=== PATIENT | male | born 1960 | race Caucasian/White ===

== ENCOUNTER 2022-10-16 07:04 | Outpatient (CLI) | payer OTHER, SELFPAY ==
--- NOTE | 2022-10-16 07:15 | MR_ITS ---
[address] [address] Phone:?[phone] Fax:?[phone] Referring Physician Information: Salinas Wilson [address] [facility] [address] Phone:?[phone] Fax:?[phone] Patient:?Rafael Jiang D.O.B:?1960 Sex:?Male Phone:?[phone] [facility] MRN:?[id number] Exam Date:?10/16/2022 EXAM: MRI OF THE LEFT ELBOW CLINICAL INFORMATION: The patient is a 62-year-old with left elbow pain. Evaluate for biceps rupture. PRIOR SURGERY: None reported. COMPARISON STUDIES: Comparison is made to prior radiographs dated 10/08/2022. TECHNICAL INFORMATION: Imaging was performed on a high-field, 1.5 Ashley MR scanner. Coronal T1, proton-density, T2, and STIR imaging of the left elbow was performed in addition to axial and sagittal proton-density and T2 imaging. FINDINGS: Elbow joint: Effusion: Mild. Ganglion cyst: None. Osteochondral surfaces: No definite chondral or osteochondral injury can be seen along the articular surfaces of the left elbow. Loose bodies: No well-defined intra-articular loose bodies are noted. Olecranon bursa: No evidence for bursitis can be seen. Osseous structures: Humerus: No fracture, osteochondritis dissecans or marrow edema/pathology. Radius: No fracture or marrow edema. Ulna: No fracture or marrow edema. Myotendinous structures: Biceps: Mild to moderate changes of distal biceps tendinosis can be seen at the radial tuberosity attachment on axial series 3 image 28. There is no evidence for full or partial-thickness tearing. No evidence for retraction is seen. No other abnormalities of the biceps tendon are present. The biceps myotendinous junction is within normal limits. Triceps: Intact posterior tendinous and anterior muscular insertions and lateral aponeurotic component, without tendinopathy, strain or tear. Brachialis: No strain/tear. Forearm extensors: Thickening and splitting of the common extensor origin can be seen at the lateral epicondyle, in keeping with chronic moderate changes of lateral epicondylitis. No evidence for disruption or retraction can be seen. No other abnormalities of the forearm extensors are noted. Forearm flexors: No tear or tendinopathy. There is no evidence for medial epicondylitis. Ligaments: Ulnar collateral: No sprain or disruption. Radial collateral: Normal. Lateral ulnar collateral: Normal. Annular: Intact. Neurovascular structures: Ulnar nerve: Normal, without appreciable edema, thickening or mass. Median neurovascular bundle: Normal. Radial neurovascular bundle: Normal. CONCLUSION: 1. Mild to moderate distal biceps tendinosis. No evidence for well-defined tearing is present. 2. Chronic moderate lateral epicondylitis. 3. No bony or osteochondral injuries are seen. 4. Mild elbow joint effusion. 5. The ligamentous structures of the elbow appear intact. 6. No neurovascular abnormalities are present. AEC Electronically signed on 10/16/2022 12:34:00 PM by Zach Vogt M.D.
--- NOTE | 2022-10-16 08:00 | MR_ITS ---
[address] [address] Phone:?[phone] Fax:?[phone] Referring Physician Information: Salinas Wilson [address] [facility] [address] Phone:?[phone] Fax:?[phone] Patient:?Rafael Jiang D.O.B:?1960 Sex:?Male Phone:?[phone] [facility] MRN:?[id number] Exam Date:?10/16/2022 EXAM: MRI OF THE LEFT SHOULDER CLINICAL INFORMATION: The patient is a 62-year-old with left shoulder pain. Evaluate rotator cuff. PRIOR SURGERY: None reported. COMPARISON STUDIES: Comparison is made to prior radiographs dated 10/08/2022. TECHNICAL INFORMATION: Using a 1.5T MR scanner and a localizing shoulder surface coil: 3.0 mm?coronal obliques: PD, T2, STIR 3.0 mm?sagittal obliques: PD, T2 3.0 mm?axials: PD, T2 FINDINGS: Articular/Extraarticular collections: Effusion: Mild to moderate. Subacromial/subdeltoid: Mild to moderate fluid is seen within the subacromial/subdeltoid bursa, in keeping with changes of bursitis. Subcoracoid: No evidence for bursitis. Osseous structures: Proximal humerus: Cortical irregularity and subcortical cystic changes can be seen involving the greater tuberosity region of the supraspinatus and infraspinatus insertion sites. The findings are in keeping with the rotator cuff pathology discussed below. No evidence for greater or lesser tuberosity fracture can be seen. There is no evidence for Hill-Sachs or reverse Hill-Sachs lesion. Glenoid: No acute bony abnormality of the glenoid fossa or glenoid neck can be seen. Acromioclavicular joint: Moderate changes of acromioclavicular joint arthrosis are present. Coracoacromial arch: Acromion morphology: Type II. No evidence for os acromiale. Acromiohumeral space: Within normal limits. Coracohumeral space: Within normal limits. Rotator cuff and deltoid: Supraspinatus: Moderate changes of supraspinatus tendinosis can be seen with deep surface fraying and irregularity. No definite full or partial-thickness tearing of the supraspinatus tendon fibers can be seen. No atrophic changes of the supraspinatus muscle belly are identified. Infraspinatus: Moderate infraspinatus tendinosis can be seen with deep surface fraying and irregularity. No full or partial-thickness tearing is identified. No atrophic changes of the infraspinatus muscle belly are present. Teres minor: No evidence for tendinosis, tearing, or associated muscle belly atrophy. Subscapularis: Moderate subscapularis tendinosis can be seen. There is partial- thickness deep surface tearing involving up to 50% of the tendon thickness and seen to best advantage on axial series 3 image 17 and on sagittal series 8 image 9. The tearing measures approximately 12 mm in greatest dimension. No full- thickness tearing or retraction is present. No atrophic changes of the subscapularis muscle belly are noted. Deltoid: No evidence for strain or tearing. Biceps tendon: Mild tendinosis of the long head of the biceps can be seen. There is no evidence for biceps rupture. No dislocation or subluxation is identified. Glenohumeral joint and labrum: Articular Cartilage: No chondral injuries along the articular surfaces of the glenohumeral articulation can be seen. No osteoarthritic changes are identified. Labrum: Degeneration, blunting, and irregularity of the glenoid labrum can be seen without definite areas of well-defined tearing. No paralabral ganglion cyst formation is present. Capsular Soft Tissues: There is thickening of the capsular structures of the glenohumeral articulation seen in the region of the axillary recess and rotator cuff interval. The findings are consistent with changes of adhesive capsulitis. CONCLUSION: 1. Moderate supraspinatus, infraspinatus, and subscapularis tendinosis. There is deep surface fraying and irregularity of the supraspinatus and infraspinatus tendons with partial-thickness deep surface tearing of the subscapularis. No full-thickness tearing or retraction of the rotator cuff can be seen. 2. Thickening of the capsular structures, in keeping with adhesive capsulitis. 3. Mild tendinosis of the long head of the biceps. 4. Moderate acromioclavicular joint arthrosis. 5. Glenohumeral joint effusion and subacromial/subdeltoid bursitis. AEC Electronically signed on 10/16/2022 12:39:00 PM by Zach Vogt M.D.
== END 2022-10-16 07:05 | disposition home or self-care (01) ==
PROVIDERS: PCP Student in an Organized Health Care Education/Training Program; Visit Provider Physician Assistant
DX: M25.522 Pain in left elbow (principal); M77.12 Lateral epicondylitis, left elbow; M25.422 Effusion, left elbow; M75.102 Unspecified rotator cuff tear or rupture of left shoulder, not specified as traumatic; M19.012 Primary osteoarthritis, left shoulder; M25.412 Effusion, left shoulder; M75.52 Bursitis of left shoulder; M25.512 Pain in left shoulder
CPT/HCPCS: 73221

== ENCOUNTER 2023-03-15 12:30 | Outpatient (RCR) | payer OTHER, SELFPAY ==
--- NOTE | 2022-12-04 11:23 | REH.PT ---
I am writing to request an OT consult for Angelo due to his ongoing left wrist/thumb pain. Would you be willing to place an OT order for this? Thank you. Matt Michelle PT, [phone]
--- NOTE | 2023-01-01 14:39 | REH.PT ---
Nicolas Stephens has a follow up visit with you on 01/16/23. He is making good progress toward goals, but I am wondering about the possibility of transitioning to work conditioning for the month of January, prior to return to work? Thank you for your consideration. If you think this is a good idea, it would be good to get the ball rolling and get him scheduled prior to your 01/16/23 visit. Thank you! Matt Michelle, PT [id number]
--- NOTE | 2023-01-10 13:36 | PT.OPDNX ---
PT [facility] Daily Note PT [facility] Daily Note Start: 11/15/22 11:45 Freq: Status: Active Protocol: Document 01/10/23 09:06 [facility] (Rec: 01/10/23 10:16 [facility] [id number]) E-signed By Matt Michelle, PT PT OP Daily Progress Note Visit Information Note Type Daily Note,Recert/Progress Note Visit Number 12 Insurance Information Insurance Name Workman's Comp Medical Diagnosis Left elbow pain M25.522 Left shoulder pain M25.512 Treating Diagnosis Left elbow pain M25.522 Left shoulder pain M25.512 Muscle weakness M62.81 Referring MD Amina Amaya PA-C Subjective Subjective Pt had appt w/ ALEJO Jones yesterday. Angelo wanted to talk through their discussion and how it relates to PT plan moving forward. Pt continues to have intermittent bands of pain around left upper and lower arm, but he states that his thumb pain is currently the most bothersome. X-ray showed arthritis at base of thumb. 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 Pt is putting a lot of energy into taking care of his left UE impairents, doing the home exercises, wrist bracing , stretches, etc, along with the work comp work at [employer]. Pain Comments moderate, left shoulder Preferred Name [facility] Home Exercise Comments Access Code: [email or web address] URL: [email or web address] Date: 12/18/2022 Prepared by: Matt Michelle Exercises - Supine Shoulder Flexion Extension AAROM with Dowel - 1 x daily - 7 x weekly - 1 sets - 2-3 reps - 5-10 hold - Supine Thoracic and Chest Stretch on Rolled Towel - 1 x daily - 7 x weekly - 1 sets - 1 reps - 1-5 minute hold - Standing Bent Over Single Arm Scapular Row with Table Support - 1 x daily - 7 x weekly - 2 sets - 5 reps - Single Arm Bent Over Shoulder Horizontal Abduction with Dumbbell - Palm Down - 1 x daily - 7 x weekly - 2 sets - 5 reps - Radial nerve sliders with towel behind back - 1 x daily - 7 x weekly - 1 sets - 10 reps - Radial Nerve Gliding: Electronic Organ Technician 's Tip - 1 x daily - 7 x weekly - 3 sets - 5 reps - Standing Pec Stretch at Wall - 1 x daily - 7 x weekly - 1 sets - 2 reps - 15 seconds hold - Standing Shoulder Extension AAROM with Dowel - 1 x daily - 7 x weekly - 1 sets - 3 reps - 10 hold - Hip Flexor Stretch at Edge of Bed - 1 x daily - 7 x weekly - 1 sets - 1 reps - 1-2 minutes hold - Half Kneeling Hip Flexor Stretch with Chair - 1 x daily - 7 x weekly - 1 sets - 1 reps - 1-2 minutes hold - Mini Lunge - 1 x daily - 7 x weekly - 1 sets - 10 reps - Sidelying Shoulder External Rotation - 1 x daily - 7 x weekly - 2 sets - 5 reps - Standing Shoulder Flexion Wall Walk - 1 x daily - 7 x weekly - 1 sets - 10 reps - Standing Bilateral Low Shoulder Row with Anchored Resistance - 1 x daily - 7 x weekly - 1 sets - 15 reps - Shoulder Extension with Resistance - 1 x daily - 7 x weekly - 1 sets - 15 reps - Shoulder External Rotation and Scapular Retraction with Resistance - 1 x daily - 7 x weekly - 2 sets - 8-10 reps - Figure 4 Bridge - 1 x daily - 7 x weekly - 1 sets - 15 reps Objective Other/Pertinent Objective Left shoulder strength: (*= pain) abduction: 4/5* flexion: 4-/5* extension: 5/5 ER: 4+/5 IR: 4+/5* Scaption (thumb down):4-/5* Elbow flexion: 4/5* Left shoulder: AROM WNL except IR limited ~10% and end range pain Functional Test Performed & Score Able to crank 15 reps 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 Discussed patient's fatigue. Pt feels it is due to spending so much of his day taking care of his different pains along with 6 hours on his feet at the [employer]. He sleeps fairly well with his CPAP. He feels his body is still getting use to all the new activity. Performed work simulation strengthening tasks: resisted crank using TRX rip cord, light/moderate resistance 2x15 reps. 1x10 reps 12 alternating step ups 15x each leg - fatigued after 8# MB overhead reach w/ burst squat 20x, add in heel raise for last 5 reps Treatment Minutes Timed Code Treatment Minutes 40 Total Treatment Time 40 Billing Units Therapeutic Activity Units 3 Assessment/Impression Assessment/Impression Angelo is making progress toward work related functional goals in PT, but muscle fatigue, intermittent left shoulder pain and frequent left thumb pain are limiting factors to his return to work right now. He also still left shoulder pain w/ strength testing of shoulder abduction, flexion and IR and elbow flexion. We are incorporating more work specific movements/demands into his strengthening program while also treating his left shoulder/elbow impairments. 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
--- NOTE | 2023-03-15 14:43 | AT.DPN ---
AT Daily Progress Note AT Daily Progress Note Start: 01/30/23 17:31 Freq: Status: Active Protocol: Document 03/15/23 14:38 CM[facility] (Rec: 03/15/23 14:42 CMW [id number]) E-signed By Best Wagner, MS, LAT, ATC Athletic Training Daily Progress Note Visit Number/Visits Authorized Note Type Discharge Note Insurance Information Insurance Name Workman's Comp Patient Diagnosis Treating Diagnosis & ICD Code(s) Muscle Weakness M 62.81 Muscle Atrophy Left UE M62.522 Pain in L shoulder M25.512 Referring Medical Provider Amina Booth Discharge Summary Discharge Summary Patient reports no pain today. Patient demonstrates objective improvement in B shoulder strength and endurance compared to intake testing. Pt demonstrates improved tolerance and strength to functional lifting tests when compared to intake . Date of First Session 01/30/23 Date of Last Session 03/15/23 Initial Primary Functional Limitations Decreased B shoulder strength and endurance Global deconditioning Poor core strength and lumbopelvic control Initial Pain Level 4/10 L shoulder 8/10 L wrist/thumb Pain Level at Discharge 0/10 Interventions Provided During Treatment Therapeutic Activities, Therapeutic Exercise Discharge Instructions Continue with HEP and workout routines
== END 2023-03-15 14:48 | disposition home or self-care (01) ==
LOC: WKPLHLTH 12:30
PROVIDERS: PCP Student in an Organized Health Care Education/Training Program; Visit Provider Physician Assistant
DX: M25.522 Pain in left elbow (principal); M25.512 Pain in left shoulder; M25.532 Pain in left wrist
CPT/HCPCS: 97035; 97110; 97112; 97140; 97163; 97166; 97530; 97545; 97750; L3913; X5282

== ENCOUNTER 2024-03-05 06:59 | Day surgery (SDC) | payer MEDICARE, BC, SELFPAY ==
[2024-03-05 07:29] VITALS: BMI 27.6
[2024-03-05 07:32] VITALS: BP 105/75; PULSE 65; RESP 20; TEMP 36.4; O2SAT 96
[2024-03-05] MEDS: SODIUM CHLORIDE 0.9 % (FLUSH) 10 ML SYRINGE IVF (08:30)
[2024-03-05] MEDS: LACTATED RINGERS 1000 ML 1,000 ML 100 ML IV (08:30)
[2024-03-05 08:50] VITALS: BP 113/70; PULSE 54; RESP 20; O2SAT 97
[2024-03-05] MEDS: ACETAMINOPHEN 500 MG TABLET 1000 MG PO (08:50)
[2024-03-05] MEDS: OXYCODONE (CR) 10 MG TAB.ER.12H PO (08:50)
[2024-03-05] MEDS: CELECOXIB 200 MG CAPSULE PO (08:50)
[2024-03-05] MEDS: fentaNYL 100 MCG/2 ML inj IVP (08:55)
[2024-03-05] MEDS: MIDAZOLAM HCL 1 MG/ML inj IVP (08:55)
[2024-03-05 09:00] VITALS: BP 114/83; PULSE 57; RESP 20; O2SAT 96
--- NOTE | 2024-03-05 09:01 | SUR.PREOP ---
TIME?OUT:?0850, left thumb PT/RN/MDA?VERIFICATION?OF?SURGICAL?SITE,?PROCEDURE,?AND?CONSENT OBTAINED?PRIOR?TO?INVASIVE?PROCEDURE.
--- NOTE | 2024-03-05 09:19 | P.NB_ITS ---
Nerve Block Nerve Block Time Seen by Provider: 09:00 Date Seen: 03/05/24 Type of block requested by surgeon for post-operative analgesia: axillary Side: left Time out performed: Yes Verification of patient name: Yes Verification of date of : Yes Site marking: site marked Name of person performing procedure: Pavan Continuous monitoring Was continuous monitoring of O2 sat, B/P, cardiac cath lab radiology technologist, recorded every 15 minutes?: Yes Procedure Checklist: sterile prep, needles and gloves Ultrasound guided. Images saved: Yes Medications given in 5ml increments after negative aspiration: Ropivicaine %: 0.5 mL: 25 Needle gauge: 22 Patient tolerated procedure well: Yes Additional comments: Needle noted adjacent to nerve Block Charges Block Charge (with Pro Fee): Brachial Plexus Use of Ultrasound Machine for Block: Yes- US Guidance/pain block
--- NOTE | 2024-03-05 09:19 | W.ANESCHARGE ---
Anesthesia Charges Start Date/Time Anesthesia Start Date: 03/05/24 Anesthesia Start Time: 09:38 Stop Date/Time Anesthesia Stop Date: 03/05/24 Anesthesia Stop Time: 11:31
[2024-03-05] MEDS: CEFAZOLIN 2 GM INJ IVP (09:49)
--- NOTE | 2024-03-05 11:01 | PM.ORPRC ---
Procedure Note Date of procedure: 03/05/24 Procedure: PREOPERATIVE DIAGNOSIS: Left thumb CMC joint osteoarthritis POSTOPERATIVE DIAGNOSIS: Left thumb CMC joint osteoarthritis NAME OF OPERATION: Left thumb CMC arthroplasty (LRTI) SURGEON: Zeus Lawrence MD CAMPUS MONITOR: Irma Bergman PA-C ANESTHESIA: Axillary block plus monitored anesthesia care ESTIMATED BLOOD LOSS: 0 mL COMPLICATIONS: None SPECIMENS: None DRAINS: None PREOPERATIVE ANTIBIOTICS: Ancef 2 grams INDICATIONS: The patient is a 63-year-old with a history of left thumb CMC joint osteoarthritis. Despite appropriate nonoperative management, including activity modification, antiinflammatories, [id number] pain medication, bracing, occupational therapy, and injections they continue to have pain and disability. Operative intervention was offered. The risks, benefits and expected outcomes were discussed in detail. These included but were not limited to: Infection, bleeding, injury to blood vessel or nerve, venous thromboembolism. All questions were answered to their satisfaction. Use of an perinatal breastfeeding assistant was necessary for patient positioning, soft tissue retraction, wound closure and dressing and splint application. PROCEDURE: An axillary block was placed by anesthesia. The patient was placed supine on the operating room table. IV sedation was administered. The left upper extremity was prepped and draped in the usual sterile fashion. The limb was exsanguinated with the Dmitri bandage. The pneumatic tourniquet was inflated to 250 mmHg. A longitudinal incision was made just dorsal to the 1st dorsal compartment at the base of the thumb. Subcutaneous dissection was taken with tenotomy scissors. Several small crossing veins were cauterized and divided. The base of the thumb metacarpal was exposed. The CMC joint capsule was incised longitudinally. Subperiosteal dissection of the trapezium was carried both dorsally and volarly. Likewise, the base of the thumb metacarpal was subperiosteally exposed. The radial sensory nerve was encountered and was carefully protected throughout the case. The trapezium was dissected free with the 15 blade and the Addison elevator. It was removed piecemeal. Attention was then turned to the FCR graft harvest. A transverse incision was made at the musculotendinous junction of the FCR in the volar forearm. Subcutaneous dissection was taken with tenotomy scissors to the tendon. The tendon was freed up from the muscle fibers and was divided transversely. We then pulled the tendon graft into the distal incision at the base of the thumb. We placed a 2-0 FiberWire suture in the deep capsule. A 2.8 mm socket was drilled on the radial side of the base of the index finger metacarpal. A loop of labral tape was placed in the socket and secured with a 3 mm x 8 mm BioComposite anchor. A guide pin was drilled through the dorsum of the base of the thumb metacarpal exiting at the volar peak of the base of thumb metacarpal. A 5 mm tunnel was drilled. The tendon passer was placed through the tunnel. We pulled the tendon graft and both limbs of the labral tape into the tunnel. We maximally tensioned the graft and then placed a 4.75 x 15 mm Arthrex BioComposite tenodesis screw just distal to the graft. The graft was then pulled proximally and was secured to the dorsal bone of the base of the metacarpal with 2-0 FiberWire suture x2. We then used our previously placed 2-0 FiberWire suture in the deep capsule and folded the graft back and forth over these sutures. The graft was placed in the depth of the wound and this FiberWire suture was tied over the top to secure it in position. There was no hyper extension through the thumb MP joint. Therefore, we did not transfer the EPB. The wound was irrigated with normal saline. The capsule was closed with a 3-0 Vicryl in an interrupted [id number] fashion. Wounds were closed with 3-0 Vicryl and a 4-0 Monocryl. Glue was used to seal the skin. A dry dressing and short-arm thumb spica splint were applied, the tourniquet was released. Sponge and needle counts were correct x 2. The patient tolerated the procedure well. There were no apparent complications. They were carefully transferred to the hospital bed and taken to the postanesthesia care unit in satisfactory condition. PLAN: The patient will be discharged to home. They will work on ice and elevation of the hand. They will follow up in the office next week for wound check and three views of the thumb, out of the splint prior to being seen.
[2024-03-05 11:30] VITALS: BP 106/76; PULSE 60; RESP 20; TEMP 36.1; O2SAT 94
--- NOTE | 2024-03-05 11:31 | W.ANESCHARGE ---
Anesthesia Charges Start Date/Time Anesthesia Start Date: 03/05/24 Anesthesia Start Time: 09:38 Stop Date/Time Anesthesia Stop Date: 03/05/24 Anesthesia Stop Time: 11:31
[2024-03-05 11:45] VITALS: BP 107/62; PULSE 61; RESP 20; O2SAT 94
[2024-03-05 12:15] VITALS: BP 134/82; PULSE 61; RESP 20; TEMP 36.3; O2SAT 95
== END 2024-03-05 12:34 | disposition home or self-care (01) ==
PROVIDERS: PCP Student in an Organized Health Care Education/Training Program; Visit Provider Orthopaedic Surgery
PROC: (CPT 25447; principal; 2024-03-05 09:45)
DX: M18.12 Unilateral primary osteoarthritis of first carpometacarpal joint, left hand (principal); G89.18 Other acute postprocedural pain; G47.33 Obstructive sleep apnea (adult) (pediatric)
CPT/HCPCS: 25447; 01830; 64415; 76942; A4580; A9270; C1713; J0690; J1100; J2250; J2405; J2704; J2795; J3010; J7120

== ENCOUNTER 2024-09-14 10:45 | Outpatient (RCR) | payer MEDICARE, BC, SELFPAY ==
--- NOTE | 2024-03-17 16:55 | OT.OPOE ---
OT Outpatient Ortho Eval OT Outpatient Ortho Eval* Start: 03/17/24 15:51 Freq: Status: Active Protocol: Document 03/17/24 15:52 LCN (Rec: 03/17/24 16:10 LCN [id number]) E-signed By Gail Wayne, OTR/L, CLT OT OP Ortho Eval Details Complexity Complexity Low Insurance Information Insurance Information Blue Cross/Blue Shield, Medicare B Insurance Information Comments [place] Outpatient History/Precautions Current Condition/Medical Diagnosis Referring Provider Dr. Greta Lawrence Medical Diagnoses s/p L CMC thumb arthroplasty 03/05/24 Treatment Diagnosis L thumb stiffness, weakness Date of Onset 03/05/24 Precautions Lifting Restrictions Other Precautions Gentle ROM, no gripping/ lifting/pinching with L hand, wear custom orthosis 23 of 24 hrs/day, ok to remove for showering and short HEP 4x/day . Medical Conditions Depression,HTN Medical/Functional History Medical History Reviewed Yes Prior Level of Function/Mobility is an active retired 63-year- old male who is very familiar with occupational therapy and as a private had prior services for five visits to address left wrist and thumb pain as a work comp entry in December to January 2023. Patient returns now after having left CMC arthroplasty with trapezoid removal and FCR used suspension at metacarpal stability 03/05/[address] Lawrence. Patient referred to outpatient OT for test, orthopedist, thumb, spica, edema management, and gentle progression of HEP. Patient continues with ice in elevation. Patient is very active with aqua exercise at the pool and circuit training at [address]. 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 In the summer, he enjoys paddling canoe and being outdoors. His Bull is helpful/also retired and they have three grown daughters that live in the area. Patient has prior ortho history with carpal tunnel release 15 years ago in left hand with trigger finger release of middle finger and right carpal tunnel release 20 years ago. Has had treatment for left biceps rupture last year along with subscapularis partial tear September 2022. 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 Medical history also includes hypertension, anxiety, depression. Social History Employment Status Retired Critical Job Demands Pull,Lift,Prolonged Standing Other Critical Job Demands music performance/volunteer Ortho Subjective Subjective Subjective Rafael Jiang is an active retired 63-year-old male who is very familiar with occupational therapy and as a private had prior services for five visits to address left wrist and thumb pain as a work comp entry in December to January 2023. Patient returns now after having left CMC arthroplasty with trapezoid removal and FCR used suspension at metacarpal stability 03/05/[address] Lawrence. Patient referred to outpatient OT for custom orthoplast thumb spica, edema management, and gentle progression of HEP. Patient continues with ice in elevation. Patient is very active with aqua exercise at the pool and circuit training at [address]. 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 In the summer, he enjoys paddling canoe and being outdoors. His Bull is helpful/also retired and they have three grown daughters that live in the area. Patient has prior ortho history with carpal tunnel release 15 years ago in left hand with trigger finger release of middle finger and right carpal tunnel release 20 years ago. Has had treatment for left biceps rupture last year along with subscapularis partial tear September 2022. 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 Medical history also includes hypertension, anxiety, depression. Pain Assessment Pain Pain Yes Pain Comments 7/10 if he bumps L thumb tip. Range of Motion and Strength Wrist Range of Motion and Strength Wrist Range of Motion and Strength L WR EX to 38 of 65, WF to 60 of 70, RD to 5 of 20 UD to 30 of 40. SUpination to 75 of 90. R hand clinical audiologist is 80#. L NT per post op precatuions. Hand/Finger/Thumb Range of Motion and Strength Hand/Finger/Thumb Range of Motion and Able to approximate rolled Strength fist and table top position with L hand, no complaints of numbness in hand or finger tips. Doing well with pain management alternating IBU and tylenol; finished his narcotics this am. INCISION-- L FCR harvest and L CMC site closed with skin glue, good adhesion, no drainage, skin temp and color are WNL Refill is brisk. Minimal ecchymosis at L thumb tip. Is demonstrating mild triggering of L SF during tendon gliding exercises. OT Problems Problems Problems Decreased Strength,Decreased Range of Motion,Decreased Dexterity,Pain,Sensory Sensitivity,Lifting,Gripping, Pinching Other Problems Opening Containers,Dressing, Fasteners Patient Potential Excellent Assessment Assessment Assessment Angelo is recovering well from his recent L CMC arthroplasty and has the expected thumb, wrist and hand stiffness, edema and strength deficits. Toerlated initial start of AROM HEP today well. He is expected to recover well if he can adhere to not applying resistance gripping/pinching/ weightbearing into L hand / thumb in the coming weeks as guided by his MD and careful progression with skilled OT. Occupational Therapy Treatment Plan - OP Potential Rehabilitation Potential Excellent Barriers Barriers to goal attainment Pt has very active lifestyle, wondering how soon he can get back to music playing and the gym circuit and pool exercises . Set Goals Goals Set with Patient Yes Goals Goals In 12 weeks, pt will demonstrate:? 1) Decreased pn to <2/10 80% of the time with sustained gripping, carrying groceries, using household tools, fitness tasks and playing guitar/ trombone. 2) I HEP for stretching, gradual strengthening and self mgmt strategies. 3) improved L clinical audiologist strength to 60# and pinch to 12# with L thumb pain < 1/10. 4)??Pt to be fit with functional bracing (for thumb spica/wrist,) and use adaptive strategies to protect joint integrity to support less pain with ADL. Treatment Plan Treatment Plan Evaluation,Edema Control,Joint Mobilization,Manual Therapy, Splinting,Therapeutic Exercise ,Self Care/Home Management, Education Expected Frequency 1-2x Week Expected Duration 12 weeks Home Program Home Program Home Program Initiated Home Program Specifics Gentle AROM place holds x WR EX, FL, supination, thumb and digits, edema mgmt. Certification Certification Statement I Certify That: Therapy Services Provided, Therapy Plan Established, Therapy Plan Reviewed Certification Information Clinic ID # [id number] Initial Certification Date 03/17/24 Recertification Due Date 06/15/24 Provider Signature Required Yes Provider Signature Shows Agreement With POC & Medical Necessity Physician NPI Number Write NPI# Here Physician Comment/Change Comment or Changes Physician Signature & Date Requested Please Sign/Date Here
--- NOTE | 2024-05-06 12:49 | OT.OPODN ---
OT Outpatient Ortho Daily Note OT Outpatient Ortho Daily Note* Start: 03/17/24 15:51 Freq: Status: Active Protocol: Document 05/06/24 09:53 LCN (Rec: 05/06/24 12:48 LCN [id number]) E-signed By Gail Wayne, OTR/L, CLT Type of Note Type of Note Type of Note Daily Note,Note to MD Visit Number [id number] Insurance Information Insurance Information Blue Cross/Blue Shield, Medicare B Insurance Information Comments [place] Outpatient History/Precautions Current Condition/Medical Diagnosis Referring Provider Dr. Greta Lawrence Medical Diagnoses s/p L CMC thumb arthroplasty 03/05/24 Treatment Diagnosis L thumb stiffness, weakness Date of Onset 03/05/24 Precautions Lifting Restrictions Other Precautions Gentle ROM, no gripping/ lifting/pinching with L hand, wear custom orthosis 23 of 24 hrs/day, ok to remove for showering and short HEP 4x/day . Medical Conditions Depression,HTN Medical/Functional History Medical History Reviewed Yes Prior Level of Function/Mobility Rafael is an active retired 63-year-old male who is very familiar with occupational therapy and as a private had prior services for five visits to address left wrist and thumb pain as a work comp entry in December to January 2023. Patient returns now after having left CMC arthroplasty with trapezoid removal and FCR used suspension at metacarpal stability 03/05/[address] Lawrence. Patient referred to outpatient OT for test, orthopedist, thumb, spica, edema management, and gentle progression of HEP. Patient continues with ice in elevation. Patient is very active with aqua exercise at the pool and circuit training at [address]. 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 In the summer, he enjoys paddling canoe and being outdoors. His Bull is helpful/also retired and they have three grown daughters that live in the area. Patient has prior ortho history with carpal tunnel release 15 years ago in left hand with trigger finger release of middle finger and right carpal tunnel release 20 years ago. Has had treatment for left biceps rupture last year along with subscapularis partial tear September 2022. 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 Medical history also includes hypertension, anxiety, depression. 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 Has only been wearing splint at night, sees ortho today. Rafael Jiang is an active retired 63-year-old male who is very familiar with occupational therapy and as a private had prior services for five visits to address left wrist and thumb pain as a work comp entry in December to January 2023. Patient returns now after having left CMC arthroplasty with trapezoid removal and FCR used suspension at metacarpal stability 03/05/[address] Lawrence. Patient referred to outpatient OT for custom orthoplast thumb spica, edema management, and gentle progression of HEP. Patient continues with ice in elevation. Patient is very active with aqua exercise at the pool and circuit training at [address]. He participates in leading local music, [employer] and jazz, rehearsal groups, playing guitar, trombone and piano. In the summer, he enjoys paddling canoe and being outdoors. His Bull is helpful/also retired and they have three grown daughters that live in the area. Patient has prior ortho history with carpal tunnel release 15 years ago in left hand with trigger finger release of middle finger and right carpal tunnel release 20 years ago. Has had treatment for left biceps rupture last year along with subscapularis partial tear September 2022. 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 Medical history also includes hypertension, anxiety, depression Pain Assessment Pain Pain Yes Pain Comments 3/10 CMC to MP and some forearm aching OT OP Daily Ortho Note/Assessment Therapeutic Exercise Therapeutic Exercise Minutes (minutes) 16 Therapeutic Exercise Comments Added HEP for building functional hand strength using periwinkle/light resistance putty for gripping, rolling, 2 pt pinch/alternating digits, and millan pinch. Well tolerated. Guided to perform at 30-60% effort level 1-2 sets per day keeping at 10-15 min intervals . Do not perform resistance activities if joints are sore, hot or inflamed. Added 1# dumb tamayo ex for concentric WR FL, WR EX and RD , hammer turn planes,?adding visual edits and cues for slow lowering;?well tolerated x 10 reps each.??Pt to progress to 10+5 reps, then 10+10 reps as ready. Manual Therapy Manual Therapy Minutes (minutes) 20 Manual Therapy Comments STM and gentle IASTM w #6 tool of forearm flexor, extensors muscle bulk, thumb web space and dorsal hand to reduce edema and improve tendon gliding. LLPS of DIp and MP. Opposes TH IF to SF p2 comfortably. Pin and stretch for digit extension, [place] to MCP heads of palm. Ultrasound Ultrasound Minutes (minutes) 8 Ultrasound Location & Joint Position L CMC to MP Ultrasound Frequency & Mode 3 MHz Continuous Intensity (w/cm2) 1.5 Ultrasound Comments as needed to support reduction of edema for tissue healing, improved circulation and tissue mobility. Splinting Splinting Comments 04/22/24--made IP margin of splint shorter. 04/17/24-- Updated splint to new fabricated hand based thumb spica with IP free in mid palmar radial ABD position from orthoplast. 03/20/24-- clarified he can remove splint while doing exercises resting up in recliner/chair, keep on while working/walking between rooms. 03/17/24--Splinting Wear: OTR fabricated orthoplast 3/32 inch perforated wrist to thumb spica with IP free and velcro closures. - Wear the splint at all times , except during exercises, showering or as directed by your healthcare provider. - Ensure the splint is properly fitted and not causing any pressure sores or discomfort. - Follow the specific instructions provided for adjusting or removing the splint. Total Occupational Therapy Time Occupational Therapy Minutes 44 Home Program Home Program Home Program Revised,Compliant Home Program Specifics 05/06/24-- 1# wrist dumb bells and hammer turns/mid shaft, putty/light graphic designer, alt 2 pinch and millan pinch. 04/15/24-- Added gentle gripping in sup/neutral and pronated. Contrast baths 03/23/24-- OK to return to gym circuits, cardio; play trombone 5-10 min intervals in brace usiing pain/recovery time needed post as guide. 03/20-- Added EL FL/EX in supinated, pronated and UD/RD. 03/17/24 --Gentle AROM place holds x WR EX, FL, supination, thumb and digits, edema mgmt . Range of Motion and Strength Wrist Range of Motion and Strength Wrist Range of Motion and Strength L WR EX to 38 of 65, WF to 60 of 70, RD to 5 of 20 UD to 30 of 40. SUpination to 75 of 90. R hand graphic designer is 80#. L NT per post op precatuions. Hand/Finger/Thumb Range of Motion and Strength Hand/Finger/Thumb Range of Motion and Able to approximate rolled Strength fist and table top position with L hand, no complaints of numbness in hand or finger tips. Doing well with pain management alternating IBU and tylenol; finished his narcotics this am. INCISION-- L FCR harvest and L CMC site closed with skin glue, good adhesion, no drainage, skin temp and color are WNL Refill is brisk. Minimal ecchymosis at L thumb tip. Is demonstrating mild triggering of L SF during tendon gliding exercises. Goniometric Comments Goniometric Comments Goniometric Comments 05/06/24--L WE 60 of 70 (pulls MCP to CT area) supination 80 of 90. Opposes TH tip to P1 of SF without pain. Retropulsion 2.5 of 4 [place] scale. MCP Palmar Abduction 65 of 65 . MP 50 of 70. IP 50 of 70. 04/06/24-- opposes TH tip to DIP of SF without pain OT Problems Problems Problems Decreased Strength,Decreased Range of Motion,Decreased Dexterity,Pain,Sensory Sensitivity,Lifting,Gripping, Pinching Other Problems Opening Containers,Dressing, Fasteners Patient Potential Excellent Assessment Assessment Assessment Pt 's pain continues to come down, 3-06/25. Feels good with adding resistance today, agrees he is ready to d/c the bracing. Angelo is recovering well from his recent L CMC arthroplasty and has the expected thumb, wrist and hand stiffness, edema and strength deficits. Tolerated initial start of AROM HEP today well. He is expected to recover well if he can adhere to not applying resistance gripping/pinching/ weightbearing into L hand / thumb in the coming weeks as guided by his MD and careful progression with skilled OT. Occupational Therapy Treatment Plan - OP Potential Rehabilitation Potential Excellent Barriers Barriers to goal attainment Pt has very active lifestyle, wondering how soon he can get back to music playing and the gym circuit and pool exercises . Set Goals Goals Set with Patient Yes Goals Goals In 12 weeks, pt will demonstrate:? 1) Decreased pn to <2/10 80% of the time with sustained gripping, carrying groceries, using household tools, fitness tasks and playing guitar/ trombone. 2) I HEP for stretching, gradual strengthening and self mgmt strategies. 3) improved L graphic designer strength to 60# and pinch to 12# with L thumb pain < 1/10. 4)??Pt to be fit with functional bracing (for thumb spica/wrist,) and use adaptive strategies to protect joint integrity to support less pain with ADL. Treatment Plan Treatment Plan Evaluation,Edema Control,Joint Mobilization,Manual Therapy, Splinting,Therapeutic Exercise ,Self Care/Home Management, Education Expected Frequency 1-2x Week Expected Duration 12 weeks Occupational Therapy Billing Units Treatment Minutes Timed Treatment Minutes 44 Total Treatment Minutes 44 Billing Units Manual Therapy 1 Therapeutic Exercise 1 Ultrasound 1 Ortho Billing Units Hand/Finger Orthosis W/O JTS CF 1 Certification Statement Certification Statement I Certify That: Therapy Services Provided, Therapy Plan Established, Therapy Plan Reviewed
--- NOTE | 2024-06-16 11:42 | OT.OPODN ---
OT Outpatient Ortho Daily Note OT Outpatient Ortho Daily Note* Start: 03/17/24 15:51 Freq: Status: Active Protocol: Document 06/16/24 11:25 LCN (Rec: 06/16/24 11:39 LCN [id number]) E-signed By Gail Wayne, OTR/L, CLT Type of Note Type of Note Type of Note Daily Note,Note to MD,Recert/ Progress Note Visit Number [id number] Insurance Information Insurance Information Blue Cross/Blue Shield, Medicare B Insurance Information Comments n[place]ana Outpatient History/Precautions Current Condition/Medical Diagnosis Referring Provider Dr. Greta Lawrence Medical Diagnoses s/p L CMC thumb arthroplasty 03/05/24 Treatment Diagnosis L thumb stiffness, weakness Date of Onset 03/05/24 Precautions Lifting Restrictions Other Precautions Gentle ROM, no gripping/ lifting/pinching with L hand, wear custom orthosis 23 of 24 hrs/day, ok to remove for showering and short HEP 4x/day . Medical Conditions Depression,HTN Medical/Functional History Medical History Reviewed Yes Prior Level of Function/Mobility Rafael is an active retired 63-year-old male who is very familiar with occupational therapy and as a private had prior services for five visits to address left wrist and thumb pain as a work comp entry in December to January 2023. Patient returns now after having left CMC arthroplasty with trapezoid removal and FCR used suspension at metacarpal stability 03/05/[address] Lawrence. Patient referred to outpatient OT for test, orthopedist, thumb, spica, edema management, and gentle progression of HEP. Patient continues with ice in elevation. Patient is very active with aqua exercise at the pool and circuit training at [address]. 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 In the summer, he enjoys paddling canoe and being outdoors. His Bull is helpful/also retired and they have three grown daughters that live in the area. Patient has prior ortho history with carpal tunnel release 15 years ago in left hand with trigger finger release of middle finger and right carpal tunnel release 20 years ago. Has had treatment for left biceps rupture last year along with subscapularis partial tear September 2022. 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 Medical history also includes hypertension, anxiety, depression. 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 Wearing CMC comfort Cool brace and glove helps with horn play. Hardest part is stabilizing horn in resting position sustained with TH add pressure, so he uses his horn rest more. Tender also to FL Oppose IP with pressure/CMC loading. Has hours of the day of pain free. 2-3x/week still doing contrast baths when his L hand /thumb gets sore. Able to load more music equipment. cFeels weak only when TH opposes to SF. Rafael Jiang is an active retired 63-year-old male who is very familiar with occupational therapy and as a private had prior services for five visits to address left wrist and thumb pain as a work comp entry in December to January 2023. Patient returns now after having left CMC arthroplasty with trapezoid removal and FCR used suspension at metacarpal stability 03/05/[address] Lawrence. Patient referred to outpatient OT for custom orthoplast thumb spica, edema management, and gentle progression of HEP. Patient continues with ice in elevation. Patient is very active with aqua exercise at the pool and circuit training at [address]. 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 In the summer, he enjoys paddling canoe and being outdoors. His Bull is helpful/also retired and they have three grown daughters that live in the area. Patient has prior ortho history with carpal tunnel release 15 years ago in left hand with trigger finger release of middle finger and right carpal tunnel release 20 years ago. Has had treatment for left biceps rupture last year along with subscapularis partial tear September 2022. 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 Medical history also includes hypertension, anxiety, depression Pain Assessment Pain Pain Yes Pain Comments 3/10 CMC to MP and some forearm aching OT OP Daily Ortho Note/Assessment Therapeutic Exercise Therapeutic Exercise Minutes (minutes) 8 Therapeutic Exercise Comments Added dynamic stabilization with putty scraping and rotations with periwinkle soft putty, using credit card tolerates 5 reps each plane10 reps with 3-4/10 effort. Manual Therapy Manual Therapy Minutes (minutes) 22 Manual Therapy Comments STM and gentle IASTM w #6 tool of forearm flexor, extensors muscle bulk, thumb web space and dorsal hand to reduce edema and improve tendon gliding. LLPS of DIp and MP. Opposes TH IF to SF p1 comfortably. Pin and stretch for digit extension, [place] to MCP heads of palm. Ultrasound Ultrasound Minutes (minutes) 10 Ultrasound Location & Joint Position L CMC to MP Ultrasound Frequency & Mode 3 MHz Continuous Intensity (w/cm2) 1.5 Ultrasound Comments as needed to support reduction of edema for tissue healing, improved circulation and tissue mobility. Splinting Splinting Comments 04/22/24--made IP margin of splint shorter. 04/17/24-- Updated splint to new fabricated hand based thumb spica with IP free in mid palmar radial ABD position from orthoplast. 03/20/24-- clarified he can remove splint while doing exercises resting up in recliner/chair, keep on while working/walking between rooms. 03/17/24--Splinting Wear: OTR fabricated orthoplast 3/32 inch perforated wrist to thumb spica with IP free and velcro closures. - Wear the splint at all times , except during exercises, showering or as directed by your healthcare provider. - Ensure the splint is properly fitted and not causing any pressure sores or discomfort. - Follow the specific instructions provided for adjusting or removing the splint. Total Occupational Therapy Time Occupational Therapy Minutes 40 Home Program Home Program Home Program Revised,Compliant Home Program Specifics 06/16/24-- putty scraping and rotations with periwinkle soft putty. 06/03/24 putty ball rolling, 10# band openers. 03/11--red flex bar wringing, UD/RD, sup/pronation. Aqua putty TH ADD and TH OPP to RF/ SF 05/13/24--1.5# weighted hammer for PRE, wringng with flex bar , wall push ups. 05/06/24-- 1# wrist dumb bells and hammer turns/mid shaft, putty/light event marketing assistant, alt 2 pinch and subramanian pinch. 04/15/24-- Added gentle gripping in sup/neutral and pronated. Contrast baths 03/23/24-- OK to return to gym circuits, cardio; play trombone 5-10 min intervals in brace usiing pain/recovery time needed post as guide. 03/20-- Added EL FL/EX in supinated, pronated and UD/RD. 03/17/24 --Gentle AROM place holds x WR EX, FL, supination, thumb and digits, edema mgmt . Range of Motion and Strength Wrist Range of Motion and Strength Wrist Range of Motion and Strength L WR EX to 38 of 65, WF to 60 of 70, RD to 5 of 20 UD to 30 of 40. SUpination to 75 of 90. R hand event marketing assistant is 80#. L NT per post op precatuions. Hand/Finger/Thumb Range of Motion and Strength Hand/Finger/Thumb Range of Motion and Able to approximate rolled Strength fist and table top position with L hand, no complaints of numbness in hand or finger tips. Doing well with pain management alternating IBU and tylenol; finished his narcotics this am. INCISION-- L FCR harvest and L CMC site closed with skin glue, good adhesion, no drainage, skin temp and color are WNL Refill is brisk. Minimal ecchymosis at L thumb tip. Is demonstrating mild triggering of L SF during tendon gliding exercises. Goniometric Comments Goniometric Comments Goniometric Comments 05/27/24-- TH OPP to P1 05/13/24-- pt's wrist flexion is 75 of 80 tender at end range. 05/06/24--L WE 60 of 70 (pulls MCP to CT area) supination 80 of 90. Opposes TH tip to P1 of SF without pain. Retropulsion 2.5 of 4 [place] scale. MCP Palmar Abduction 65 of 65 . MP 50 of 70. IP 50 of 70. 04/06/24-- opposes TH tip to DIP of SF without pain Hand Pinch/Farm Helper Strength Comments Comments 06/16/24-- Farm Helper 68 1/10, Subramanian pinch 9# w 3/10 pn at sides of IP shaft. 3 pt is 10# with < 1/10 pn. 05/27/24--R event marketing assistant is 75#, L 66# Subramanian pinch to 16# L and 3 pt is 16#. 2-3/10 pn at CMC momentary for all event marketing assistant/pinch at full effort. 05/13/24--R event marketing assistant is 75#, L 60# 3/10 pn at CMC. Subramanian pinch to 10# L and 3 pt is 6#. OT Problems Problems Problems Decreased Strength,Decreased Range of Motion,Decreased Dexterity,Pain,Sensory Sensitivity,Lifting,Gripping, Pinching Other Problems Opening Containers,Dressing, Fasteners Patient Potential Excellent Assessment Assessment Assessment Pt 's pain continues to come down, 2-3/10 at full effort. Feels good with being able to lift/load carry his musical gear and more endurance with playing. Progression of dynamic stability tasks. Angelo is recovering well from his recent L CMC arthroplasty and has the expected thumb, wrist and hand stiffness, edema and strength deficits. Tolerated initial start of AROM HEP today well. He is expected to recover well if he can adhere to not applying resistance gripping/pinching/ weightbearing into L hand / thumb in the coming weeks as guided by his MD and careful progression with skilled OT. Occupational Therapy Treatment Plan - OP Potential Rehabilitation Potential Excellent Barriers Barriers to goal attainment Pt has very active lifestyle, wondering how soon he can get back to music playing and the gym circuit and pool exercises . Set Goals Goals Set with Patient Yes Goals Goals In 12 weeks, pt will demonstrate:? 1) Decreased pn to <2/10 80% of the time with sustained gripping, carrying groceries, using household tools, fitness tasks and playing guitar/ trombone. 2) I HEP for stretching, gradual strengthening and self mgmt strategies. 3) improved L event marketing assistant strength to 60# and pinch to 12# with L thumb pain < 1/10. 4)??Pt to be fit with functional bracing (for thumb spica/wrist,) and use adaptive strategies to protect joint integrity to support less pain with ADL. Treatment Plan Treatment Plan Evaluation,Edema Control,Joint Mobilization,Manual Therapy, Splinting,Therapeutic Exercise ,Self Care/Home Management, Education Expected Frequency 1-2x Week Expected Duration 12 weeks Occupational Therapy Billing Units Treatment Minutes Timed Treatment Minutes 40 Total Treatment Minutes 40 Billing Units Manual Therapy 1 Therapeutic Exercise 1 Ultrasound 1 Certification Statement Certification Statement I Certify That: Therapy Services Provided, Therapy Plan Established, Therapy Plan Reviewed
--- NOTE | 2024-08-31 13:02 | OT.OPODN ---
OT Outpatient Ortho Daily Note OT Outpatient Ortho Daily Note* Start: 03/17/24 15:51 Freq: Status: Active Protocol: Document 08/31/24 12:47 LCN (Rec: 08/31/24 12:56 LCN [id number]) E-signed By Gail Wayne, OTR/L, CLT Type of Note Type of Note Type of Note Daily Note,Note to MD,Recert/Progress Note Visit Number [id number] Insurance Information Insurance Blue Cross/Blue Shield,Medicare B Information Insurance bad river band Information Comments Outpatient History/Precautions Current Condition/Medical Diagnosis Referring Provider Dr. Greta Lawrence Medical Diagnoses s/p L CMC thumb arthroplasty 03/05/24 Treatment Diagnosis L thumb stiffness, weakness Date of Onset 03/05/24 Precautions Lifting Restrictions Other Precautions Gentle ROM, no gripping/lifting/pinching with L hand, wear custom orthosis 23 of 24 hrs/day, ok to remove for showering and short HEP 4x/day. Medical Conditions Depression,HTN Medical/Functional History Medical History Yes Reviewed Prior Level of Rafael is an active retired 64-year-old male who is Function/Mobility very familiar with occupational therapy and as a private had prior services for five visits to address left wrist and thumb pain as a work comp entry in December to January 2023. Patient returns now after having left CMC arthroplasty with trapezoid removal and FCR used suspension at metacarpal stability 03/05/[address] Lawrence. Patient referred to outpatient OT for test, orthopedist, thumb, spica, edema management, and gentle progression of HEP. Patient continues with ice in elevation. Patient is very active with aqua exercise at the pool and circuit training at [address]. 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 In the summer, he enjoys paddling canoe and being outdoors. His Bull is helpful/also retired and they have three grown daughters that live in the area. Patient has prior ortho history with carpal tunnel release 15 years ago in left hand with trigger finger release of middle finger and right carpal tunnel release 20 years ago. Has had treatment for left biceps rupture last year along with subscapularis partial tear September 2022. 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 Medical history also includes hypertension, anxiety, depression. 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 Hasn't done much w modified guitar lately. aches 2-3/10 CMC base after. Starting to play to play guitar with modifications ( electric, low action, light/med strings). Has hours of the day of 1/ 10 pressure. 2-3x/week still doing contrast baths when his L hand /thumb gets sore. Able to load more music equipment. Feels weak only when TH opposes to SF. Nodular thickness 1/4 in noted superior to flexor tendon harvest site. Rafael Jiang is an active retired 63-year-old male who is very familiar with occupational therapy and as a private had prior services for five visits to address left wrist and thumb pain as a work comp entry in December to January 2023. Patient returns now after having left CMC arthroplasty with trapezoid removal and FCR used suspension at metacarpal stability 03/05/[address] Lawrence. Patient referred to outpatient OT for custom orthoplast thumb spica, edema management, and gentle progression of HEP. Patient continues with ice in elevation. Patient is very active with aqua exercise at the pool and circuit training at [address]. 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 In the summer, he enjoys paddling canoe and being outdoors. His Bull is helpful/also retired and they have three grown daughters that live in the area. Patient has prior ortho history with carpal tunnel release 15 years ago in left hand with trigger finger release of middle finger and right carpal tunnel release 20 years ago. Has had treatment for left biceps rupture last year along with subscapularis partial tear September 2022. 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 Medical history also includes hypertension, anxiety, depression Pain Assessment Pain Pain Yes Pain Comments 2/10 CMC to MP and some forearm aching OT OP Daily Ortho Note/Assessment Therapeutic Exercise Therapeutic Exercise Reviewed Power web green for digit add/abd, table top Comments intrinsics (needed cues for true table top, chord shapes, plastic dolls mold filler and wrist extension, in various forearm positions. Upgraded to supinated to 45 to reflect guitar positioning. Manual Therapy Manual Therapy 30 Minutes (minutes) Manual Therapy STM and gentle IASTM w #6 tool of forearm flexor, Comments extensors muscle bulk, thumb web space and dorsal hand to reduce edema and improve tendon gliding. LLPS of DIp and MP. Opposes TH IF to SF p1 comfortably. Pin and stretch for digit extension, [place] to MCP heads of palm. Ultrasound Ultrasound Minutes ( 10 minutes) Ultrasound Location L CMC to MP & Joint Position Ultrasound Frequency 3 MHz Continuous & Mode Intensity (w/cm2) 1.7 Ultrasound Comments as needed to support reduction of edema for tissue healing, improved circulation and tissue mobility. Splinting Splinting Comments 04/22/24--made IP margin of splint shorter. 04/17/24-- Updated splint to new fabricated hand based thumb spica with IP free in mid palmar radial ABD position from orthoplast. 03/20/24-- clarified he can remove splint while doing exercises resting up in recliner/chair, keep on while working/walking between rooms. 03/17/24--Splinting Wear: OTR fabricated orthoplast 3/32 inch perforated wrist to thumb spica with IP free and velcro closures. - Wear the splint at all times, except during exercises , showering or as directed by your healthcare provider. - Ensure the splint is properly fitted and not causing any pressure sores or discomfort. - Follow the specific instructions provided for adjusting or removing the splint. Total Occupational Therapy Time Occupational Therapy 40 Minutes Home Program Home Program Home Program Revised,Compliant Home Program 08/17/24-- green power web in table top intrinsic pulls Specifics at 45 supination 07/17/24-- [facility] rotations Th to IF/MF/RF/SF in wide to mid to narrow positions. (Start in pronated, to neutral and progress to supinated. 07/28/24) 07/01/24-- TH to 2nd MC adduction with putty. Power web red or green band with tip to tip O + WR EX 06/16/24-- putty scraping and rotations with periwinkle soft putty. 06/03/24 putty ball rolling, 10# band openers. 05/27/24--red flex bar wringing, UD/RD, sup/ pronation. Aqua putty TH ADD and TH OPP to RF/SF 05/13/24--1.5# weighted hammer for PRE, wringng with flex bar, wall push ups. 05/06/24-- 1# wrist dumb bells and hammer turns/mid shaft, putty/light plastic dolls mold filler, alt 2 pinch and subramanian pinch. 04/15/24-- Added gentle gripping in sup/neutral and pronated. Contrast baths 03/23/24-- OK to return to gym circuits, cardio; play trombone 5-10 min intervals in brace usiing pain/ recovery time needed post as guide. 03/20/23-- Added EL FL/EX in supinated, pronated and UD/RD. 03/17/24 --Gentle AROM place holds x WR EX, FL, supination, thumb and digits, edema mgmt. Range of Motion and Strength Wrist Range of Motion and Strength Wrist Range of L WR EX to 38 of 65, WF to 60 of 70, RD to 5 of 20 Motion and Strength UD to 30 of 40. SUpination to 75 of 90. R hand plastic dolls mold filler is 80#. L NT per post op precatuions. Hand/Finger/Thumb Range of Motion and Strength Hand/Finger/Thumb Able to approximate rolled fist and table top position Range of Motion and with L hand, no complaints of numbness in hand or Strength finger tips. Doing well with pain management alternating IBU and tylenol; finished his narcotics this am. INCISION-- L FCR harvest and L CMC site closed with skin glue, good adhesion, no drainage, skin temp and color are WNL Refill is brisk. Minimal ecchymosis at L thumb tip. Is demonstrating mild triggering of L SF during tendon gliding exercises. Goniometric Comments Goniometric Comments Goniometric Comments 05/27/24-- TH OPP to P1 05/13/24-- pt's wrist flexion is 75 of 80 tender at end range. 05/06/24--L WE 60 of 70 (pulls MCP to CT area) supination 80 of 90. Opposes TH tip to P1 of SF without pain. Retropulsion 2.5 of 4 [place] scale. MCP Palmar Abduction 65 of 65. MP 50 of 70. IP 50 of 70. 04/06/24-- opposes TH tip to DIP of SF without pain Hand Pinch/[employer]ica [employer] Strength Comments Comments 08/31/24-- M[employer] 44 (hands tired today, rehearsed 90 min this am) 2/10 aching. Subramanian pinch 10.5## w 3/10 pn at dorsal MP to IP shaft. 3 pt is 11# with 1-2/10 pn. 06/16/24-- M[employer] 68 1/10, Subramanian pinch 9# w 3/10 pn at sides of IP shaft. 3 pt is 10# with <1/10 pn. 05/27/24--R plastic dolls mold filler is 75#, L 66# Subramanian pinch to 16# L and 3 pt is 16#. 2-3/10 pn at CMC momentary for all plastic dolls mold filler/pinch at full effort. 05/13/24--R plastic dolls mold filler is 75#, L 60# 3/10 pn at CMC. Subramanian pinch to 10# L and 3 pt is 6#. OT Problems Problems Problems Decreased Strength,Decreased Range of Motion,Decreased Dexterity,Pain,Sensory Sensitivity,Lifting,Gripping, Pinching Other Problems Opening Containers,Dressing,Fasteners Patient Potential Excellent Assessment Assessment Assessment Pt 's pain continues to come down, 3-4/10 at full effort, annoying pain at rest continues, but the post op pain is much different than his CMC OA sx were. Feels good with being able to lift/load carry his musical gear and more endurance with playing. Lightly able to play guitar. Progression of dynamic stability tasks. Angelo is recovering well from his recent L CMC arthroplasty and has the expected thumb, wrist and hand stiffness, edema and strength deficits. Tolerated initial start of AROM HEP today well. He is expected to recover well if he can adhere to not applying resistance gripping/pinching/weightbearing into L hand /thumb in the coming weeks as guided by his MD and careful progression with skilled OT. Occupational Therapy Treatment Plan - OP Potential Rehabilitation Excellent Potential Barriers Barriers to goal Pt has very active lifestyle, wondering how soon he can attainment get back to music playing and the gym circuit and pool exercises. Set Goals Goals Set with Yes Patient Goals Goals In 12 weeks, pt will demonstrate:? 1) Decreased pn to <2/10 80% of the time with sustained gripping, carrying groceries, using household tools, fitness tasks and playing guitar/trombone. 08/31/24-- 3- 4/10 after 90 min of music or heavy gripping, takes 1-2 hrs after to recover. 2) I HEP for stretching, gradual strengthening and self mgmt strategies. 08/31/24--GOAL continued for HEP progression, building in hand manipulation, dexterity. 3) improved L plastic dolls mold filler strength to 60# and pinch to 12# with L thumb pain < 1/10. 08/31/24-- Mica [employer] 44 (hands tired today, rehearsed 90 min this am) 2/10 aching. Subramanian pinch 10.5## w 3/10 pn at dorsal MP to IP shaft. 3 pt is 11# with 1-2/10 pn. 4)??Pt to be fit with functional bracing (for thumb spica/wrist,) and use adaptive strategies to protect joint integrity to support less pain with ADL. 08/31/24- - Pt no longer bracing as of June. Treatment Plan Treatment Plan Evaluation,Edema Control,Joint Mobilization,Manual Therapy,Splinting,Therapeutic Exercise,Self Care/Home Management,Education Expected Frequency 1-2x Week Expected Duration 12 weeks Occupational Therapy Billing Units Treatment Minutes Timed Treatment 40 Minutes Total Treatment 40 Minutes Billing Units Manual Therapy 2 Ultrasound 1 Certification Statement Certification Statement I Certify That: Therapy Services Provided,Therapy Plan Established, Therapy Plan Reviewed Recertification Information Recertification Information Initial 03/17/24 Certification Date Recertification 08/21/24 Start Date Recertification Due 11/20/24 Date Reasons to Continue For joint mobilzation/LLPS and IASTM, US,activity Skilled Therapy progression, building in hand manipulation skills and supporting increased endurance with playing instuments (keys/trombone), getting back to gentle guitar. Rehabilitation Excellent per dx, good HEP complianace and motivation Potential Click To Default ' Per treatment plan Per treatment plan' Continued Plan of Per treatment plan Care and Interventions Provider Signature Yes Required Provider Signature POC & Medical Necessity Shows Agreement With Physician NPI Number Write NPI# Here Physician Comment/ Comment or Changes Change Physician Signature Please Sign/Date Here & Date Requested
== END 2024-10-02 17:23 | disposition home or self-care (01) ==
PROVIDERS: PCP Student in an Organized Health Care Education/Training Program; Visit Provider Orthopaedic Surgery
DX: Z48.89 Encounter for other specified surgical aftercare (principal); Z51.89 Encounter for other specified aftercare
CPT/HCPCS: 97035; 97110; 97140; 97165; 97530; L3806; L3913; X5282